=== PATIENT | female | born 1955 ===

== ENCOUNTER 2021-04-01 12:14 | Emergency (ER) | payer OTHER ==
[~2021-04-01] VITALS: Ht 167.6 cm; Wt 129.3 kg
[~2021-04-01 12:14] MED LIST: ENALAPRIL MALE2.5 MG; LIPITOR20 MG; SYNTHROID50 MCG
[2021-04-01] MEDS ORDERED: CIPRO500 MG PO (15:12)
== END 2021-04-01 15:51 | disposition home or self-care (01) ==
LOC: ER 12:14
DX: R30.0 Dysuria (principal); E03.9 Hypothyroidism, unspecified